=== PATIENT | male | born 1940 ===

== ENCOUNTER 2018-01-16 12:13 | Emergency (ER) | payer OTHER ==
[~2018-01-16] VITALS: Ht 175.3 cm; Wt 64.9 kg
[2018-01-16] MEDS ORDERED: LOSARTAN POTASS50 MG PO (12:37)
== END 2018-01-16 18:58 | disposition home or self-care (01) ==
LOC: ER 12:13
DX: F06.4 Anxiety disorder due to known physiological condition (principal)